=== PATIENT | male | born 1965 | race Two or more races ===

== ENCOUNTER → 2024-05-04 | Emergency (ER) | payer MEDICAID ==
[~2024-05-04] VITALS: Ht 162.6 cm; Wt 81.6 kg
[~2024-05-04] MED LIST: KETOROLAC TROMETHAMINE INJ 60 MG/2 ML VIAL IM ONE; MORPHINE SULFATE INJ 2 MG/ML DISP.SYRIN ONE; PROPOFOL 20 ML IV ONE
[2024-05-04] MEDS: KETOROLAC TROMETHAMINE INJ 60 MG/2 ML VIAL IM ONE (09:52)
[2024-05-04] MEDS: MORPHINE SULFATE INJ 2 MG/ML DISP.SYRIN IM ONE (10:02)
[2024-05-04] MEDS: IV NS 0.9% 1,000 ML BAG IV ONE (11:40)
[2024-05-04] MEDS: PROPOFOL 200 MG/20 ML VIAL IV ONE (11:49)
[2024-05-04 12:17] VITALS: BP 139/87; TEMP 98.9; O2SAT 95
== END ==
LOC: ER 09:20
DX: S43.005A Unspecified dislocation of left shoulder joint, initial encounter (principal); W01.0XXA Fall on same level from slipping, tripping and stumbling without subsequent striking against object, initial encounter; Y93.01 Activity, walking, marching and hiking; Y92.89 Other specified places as the place of occurrence of the external cause; Y99.8 Other external cause status
CPT/HCPCS: 99291; 23650; 96360; 99152; 73080; 73090; 73060; 73030 ×2; 96372; J2704; J1885; J7030; A4223; J2270; G0500